=== PATIENT | female | born 1940 | race Native Hawaiian/Other Pacific Islander ===

== ENCOUNTER 2017-01-13 20:21 | Inpatient (IN) | payer SELFPAY ==
[2017-01-13 20:21] VITALS: BMI 25.0
[2017-01-13 22:00] LABS: BASO % 0.7 % (0.0-2.0); EOS # 0.1 K/uL (0.0-0.7); EOS % 1.3 % (0.0-4.0); HEMOGLOBIN 13.8 g/dL (12.0-16.0); LYMPH # 2.1 K/uL (1.0-4.3); LYMPH % 33.4 % (20.0-40.0); MEAN CELL VOLUME 90.5 fl (81.0-99.0); MEAN CORPUSCULAR HEMOGLOBIN 29.8 pg (27.0-31.0); MEAN PLATELET VOLUME 7.6 fl (7.2-11.7); MONO # 0.5 K/uL (0.0-0.8); MONO % 8.3 % (0.0-10.0); NEUT # 3.5 K/uL (1.8-7.0); NEUT % 56.3 % (50.0-75.0); RBC 4.63 Mil/uL (3.80-5.20); RED CELL DISTRIBUTION WIDTH 13.7 % (11.5-14.5); WHITE BLOOD COUNT 6.2 K/uL (4.8-10.8)
[2017-01-13 22:03] LABS: ALB/GLOB RATIO 1.3 (1.0-2.1); ALBUMIN 4.5 g/dL (3.5-5.0); ALT/SGPT 46 U/L (9-52); AST/SGOT 43 U/L (14-36); BLOOD UREA NITROGEN 14 mg/dl (7-17); CALCIUM 9.8 mg/dL (8.4-10.2); GFR AFRICAN-AMERICAN > 60; GFR NON-AFRICAN AMERICAN > 60
[2017-01-13] MEDS ORDERED: Nitroglycerin 2% 15 INCH/30 GM TUBE TOP STA (22:03)
--- NOTE | 2017-01-13 22:04 | ED PDOC ---
HPI: Chest Pain Time Seen by Provider: 01/13/17 20:50 Chief Complaint (Nursing): Chest Pain Chief Complaint (Provider): Shortness of breath History Per: Patient History/Exam Limitations: no limitations Onset/Duration Of Symptoms: Days (2) Additional Complaint(s): Patient is a 76 year old female presenting to the emergency department for shortness of breath x2 days and a headache that radiates to the top of her head and both temples. Notes that her blood pressure medications were changed recently, reporting a blood pressure of 204/104 and then a systolic pressure of 187. Denies chest pain, palpitations, focal weakness, calf pain or swelling, and recent travel. [employer] #[id number] was used to obtain history. PCP: none provided. Past Medical History Vital Signs: Last Vital Signs Temp 98.4 F 01/15/17 12:00 Pulse 57 L 01/15/17 12:00 Resp 20 01/15/17 12:00 BP 143/69 01/15/17 12:00 Pulse Ox 99 01/16/17 10:36 - Medical History PMH: HTN Denies: Chronic Kidney Disease - Family History Family History: States: Unknown Family Hx - Home Medications Home Medications: Ambulatory Orders Medication Instructions Recorded Famotidine [Pepcid] 20 mg PO DAILY #30 tab 01/15/17 Lisinopril [Zestril] 30 mg PO DAILY #30 tab 01/15/17 - Allergies Allergies/Adverse Reactions: Allergies Allergy/AdvReac Type Severity Reaction Status Date / Time No Known Allergies Allergy Verified 04/29/15 23:03 Review of Systems ROS Statement: Except As Marked, All Systems Reviewed And Found Negative Cardiovascular: Negative for: Chest Pain, Palpitations Respiratory: Positive for: Shortness of Breath (x 2 days) Musculoskeletal: Negative for: Leg Pain (calf pain or swelling) Neurological: Positive for: Headache (top of head and bilateral temples). Negative for: Weakness (focal) Physical Exam - Reviewed Nursing Documentation Reviewed: Yes Vital Signs Reviewed: Yes - Physical Exam Appears: Positive for: Well, Non-toxic, No Acute Distress Head Exam: Positive for: ATRAUMATIC, NORMAL INSPECTION, NORMOCEPHALIC Skin: Positive for: Normal Color, Warm, Dry Eye Exam: Positive for: EOMI, Normal appearance, PERRL ENT: Positive for: Normal ENT Inspection Neck: Positive for: Normal, Painless ROM, Supple Cardiovascular/Chest: Positive for: Regular Rate, Rhythm. Negative for: Murmur Respiratory: Positive for: Normal Breath Sounds. Negative for: Accessory Muscle Use, Respiratory Distress Gastrointestinal/Abdominal: Positive for: Normal Exam, Soft Back: Positive for: Normal Inspection Extremity: Positive for: Normal ROM. Negative for: Pedal Edema Neurologic/Psych: Positive for: Alert, Oriented, Other (speaking in full sentences) - Laboratory Results Result Diagrams: 01/13/17 21:45 01/13/17 21:45 - ECG Interpretation Of ECG: SR @ 81, PACs, no ST-T changes. O2 Sat by Pulse Oximetry: 99 (RA) Pulse Ox Interpretation: Normal - Radiology X-Ray: Interpreted by Oh X-Ray Interpretation: No Acute Disease - CT Scan/US CT head Other Rad Studies (CT/US): Radiology Report Reviewed (No acute intracranial hemorrhage, or suspicious mass effect.) CT chest Other Rad Studies (CT/US): Radiology Report Reviewed Medical Decision Making Medical Decision Making: Time: 21:30 Initial Impression: Dyspnea, pulmonary embolism, and pneumonia Initial Plan: -Head CT Scan -EKG -Labs -ED Urine Dipstick -Chest X-Ray -Urinalysis -Nitro-Bid 2% Ointment -Reevaluation 22:[address] Scan Findings: Brain: No acute intracranial hemorrhage. Age-appropriate periventricular white matter disease. No edema. Ventricles: Age-appropriate ventriculomegaly. Bones: No acute displaced fracture. Sinuses: Unremarkable as visualized. No acute sinusitis. Mastoid air cells: Unremarkable as visualized. No mastoid effusion. IMPRESSION: No acute intracranial hemorrhage, or suspicious mass effect. Scribe Attestation: Documented by Melany Florez, acting as a scribe for Megan Montgomery MD. Provider Scribe Attestation: All medical record entries made by the Scribe were at my direction and personally dictated by me. I have reviewed the chart and agree that the record accurately reflects my personal performance of the history, physical exam, medical decision making, and the department course for this patient. I have also personally directed, reviewed, and agree with the discharge instructions and disposition. Disposition - Clinical Impression Clinical Impression: Chest pain, Dyspnea - Patient ED Disposition Is Patient to be Admitted: Yes - Disposition Disposition Time: 22:27 Condition: STABLE - Pt Status Changed To: Hospital Disposition Of: Inpatient - Admit Certification Admit to Inpatient:: After my assessment, the patient will require hospitalization for at least two midnights. This is because of the severity of symptoms shown, intensity of services needed, and/or the medical risk in this patient being treated as an outpatient. - POA Present On Arrival: None
[2017-01-13] MEDS ORDERED: Nitroglycerin 2% Ointment Foilpak UD TOP ONE (22:05)
[2017-01-13 22:15] LABS: B-TYPE NATRIURETIC PEPTIDE 42.2 pg/ml (0-900); INR 1.1 (0.9-1.2); PROTHROMBIN TIME 11.2 Seconds (9.8-13.1)
--- NOTE | 2017-01-13 22:22 | CT ---
EXAM: CT Head Without Intravenous Contrast CLINICAL HISTORY: 76 years old, female; Pain; Headache; Headache not specified; Additional info: MARIO TECHNIQUE: Axial computed tomography images of the head/brain without intravenous contrast. All CT scans at this facility use one or more dose reduction techniques, viz.: automated exposure control; ma/kV adjustment per patient size (including targeted exams where dose is matched to indication; i.e. head); or iterative reconstruction technique. Coronal and sagittal reformatted images were created and reviewed. COMPARISON: CT - HEAD W/O CONTRAST 04/30/2015 1:20:40 AM FINDINGS: Brain: No acute intracranial hemorrhage. Age-appropriate periventricular white matter disease. No edema. Ventricles: Age-appropriate ventriculomegaly. Bones: No acute displaced fracture. Sinuses: Unremarkable as visualized. No acute sinusitis. Mastoid air cells: Unremarkable as visualized. No mastoid effusion. IMPRESSION: No acute intracranial hemorrhage, or suspicious mass effect.
[2017-01-13] MEDS ORDERED: Sodium Chloride 0.9% 50 ML IV ONE (23:08)
[2017-01-13] MEDS ORDERED: Iodixanol 320 MG/ML 100 ML BOTTLE IV ONE (23:08)
[2017-01-13 23:45] LABS: URINE BACTERIA RARE (<OCC); URINE BILIRUBIN NEGATIVE (NEGATIVE); URINE BLOOD NEGATIVE (NEGATIVE); URINE CLARITY CLEAR (Clear); URINE COLOR COLORLESS (YELLOW); URINE GLUCOSE (UA) NEG (Normal); URINE LEUKOCYTE ESTERASE TRACE Leu/uL (Negative); URINE NITRATE NEGATIVE (NEGATIVE); URINE PROTEIN NEGATIVE (NEGATIVE); URINE UROBILINOGEN 0.2-1.0 mg/dL (0.2-1.0)
--- NOTE | 2017-01-14 00:01 | CT ---
EXAM: CT Angiography Chest With Intravenous Contrast CLINICAL HISTORY: 76 years old, female; Signs and symptoms; Shortness of breath; Additional info: SOB TECHNIQUE: Axial computed tomographic angiography images of the chest with intravenous contrast using pulmonary embolism protocol. All CT scans at this facility use one or more dose reduction techniques, viz.: automated exposure control; ma/kV adjustment per patient size (including targeted exams where dose is matched to indication; i.e. head); or iterative reconstruction technique. MIP reconstructed images were created and reviewed. Coronal and sagittal reformatted images were created and reviewed. CONTRAST: 90 mL of [id number] administered intravenously. COMPARISON: None FINDINGS: Pulmonary arteries: No pulmonary embolism. Aorta: No thoracic aortic aneurysm. No dissection. Lungs: No mass. No consolidation. The lungs are clear. Pleural spaces: No significant effusion. No pneumothorax. Heart: The heart is enlarged, without significant pericardial effusion. No evidence of right heart dysfunction. Bones: No acute fracture. Lymph nodes: No pathologically enlarged lymph nodes. IMPRESSION: No pulmonary embolism. The lungs are clear. Cardiomegaly, without effusion.
--- NOTE | 2017-01-14 00:48 | CP.PCM.HP ---
History of Present Illness - History of Present Illness History of Present Illness: 76 y/o Malagasy F with PMH of HTN presents to ED for evaluation of chest pain. History obtained by patient via [employer] shirt cleaner #[id number] and by son-in-law. Patient reports approximately 1 month history of intermittent, left sided, chest discomfort which she describes as "tightness." Episodes have been brief, mild, lnot related to exertion and usually alleviated with massage application of herbal Malagasy oils. On the night of assessment, patient had similar gradual onset of "tightness" which occurred after cooking dinner. She decided to seek medical attention since this episode was more intense than her prior episodes and was not alleviated with application of oils. She had associated shortness of breath and bitemporal headache but denies fevers, chills, dizziness, diaphoresis, focal weakness, abdominal pain, nausea or vomiting. At her baseline , patient is able to walk for 30 minutes per day without exertional pain or SOB. PMD: Dr Rodriguez, [facility] Present on Admission - Present on Admission Any Indicators Present on Admission: No History of DVT/PE: No History of Uncontrolled Diabetes: No Urinary Catheter: No Decubitus Ulcer Present: No Review of Systems - Review of Systems All systems: reviewed and no additional remarkable complaints except Past Patient History - Past Medical History & Family History Past Medical History?: Yes - Past Social History Smoking Status: Never Smoked Alcohol: None Drugs: Denies Home Situation {Lives}: With Family - CARDIAC Hx Hypertension: Yes - PULMONARY Hx Respiratory Disorders: No - NEUROLOGICAL Hx Neurological Disorder: No - HEENT Hx HEENT Problems: No - RENAL Hx Chronic Kidney Disease: No - ENDOCRINE/METABOLIC Hx Endocrine Disorders: No - HEMATOLOGICAL/ONCOLOGICAL Hx Blood Disorders: No - INTEGUMENTARY Hx Dermatological Problems: No - MUSCULOSKELETAL/RHEUMATOLOGICAL Hx Musculoskeletal Disorders: No Hx Falls: No - GASTROINTESTINAL Hx Gastrointestinal Disorders: No - GENITOURINARY/GYNECOLOGICAL Hx Genitourinary Disorders: No - PSYCHIATRIC Hx Psychophysiologic Disorder: No Hx Substance Use: No - SURGICAL HISTORY Hx Surgeries: No - ANESTHESIA Hx Anesthesia: No Hx Anesthesia Reactions: No Hx Malignant Hyperthermia: No Meds Allergies/Adverse Reactions: Allergies Allergy/AdvReac Type Severity Reaction Status Date / Time No Known Allergies Allergy Verified 04/29/15 23:03 Physical Exam - Constitutional Appears: Non-toxic, No Acute Distress - Head Exam Head Exam: ATRAUMATIC, NORMAL INSPECTION, NORMOCEPHALIC - Eye Exam Eye Exam: EOMI, PERRL - ENT Exam ENT Exam: Mucous Membranes Moist - Respiratory Exam Respiratory Exam: Clear to Auscultation Bilateral, NORMAL BREATHING PATTERN. absent: Chest Wall Tenderness, Rales, Rhonchi, Wheezes, Respiratory Distress - Cardiovascular Exam Cardiovascular Exam: REGULAR RHYTHM, RRR, +S1, +S2, Systolic Murmur (Grade I) - GI/Abdominal Exam GI & Abdominal Exam: Normal Bowel Sounds, Soft. absent: Distended, Guarding, Rebound, Tenderness - Extremities Exam Extremities exam: Positive for: normal capillary refill, pedal edema (trace). Negative for: calf tenderness - Neurological Exam Neurological exam: Alert, CN II-XII Intact, Oriented x3 - Psychiatric Exam Psychiatric exam: Normal Affect, Normal Mood - Skin Skin Exam: Dry, Warm Results - Vital Signs Recent Vital Signs: Last Vital Signs Temp 98.9 F 01/13/17 20:32 Pulse 69 01/13/17 20:56 Resp 16 01/13/17 20:56 BP 158/78 H 01/13/17 20:56 Pulse Ox 99 01/13/17 23:06 - Labs Result Diagrams: 01/13/17 21:45 01/13/17 21:45 Assessment & Plan - Assessment and Plan (Free Text) Assessment: 76 y/o Malagasy F with PMH of HTN presents to ED with one month of intermittent left sided chest tightness which worsened on the day of assessment. Patient was subsequently admitted for further assessment. Plan: Chest tightness -Etiology undetermined at thist time. Will rule out ACS. -Due to associated SOB and elevated D-Dimer, a CT angio was performed, which did not detect any PE or pleural effusion. -EKG reveals sinus rhythm with premature atrial complexes. No ischemic changes present. -Will repeat EKG in AM -Admit to telemetry for continuous cardiac monitoring -Troponin x1 negative. Will follow serial troponins -ASA 325mg PO administered -Nitroglycerin topical prn -O2 via NC prn Hypertension -Possibly aggravated by chest tightness -BP in ED improved from 193/83 to 158/78 during observation -Repeat systolic BP in 140s during assessment -Taking Lisinopril 20mg PO daily and Amlodipine 2.5mg PO daily -Not taking prescribed HCT 12.5mg daily -Will monitor BP Headache -Etiology undetermined -Bitemporal headache with no associated auras or focal neurologic deficits -CT head w/o contrast performed in ED detected no intracranial abnormalities -ESR performed on 12/28/16 normal at 13 -Will give tylenol 650mg PO and assess for response DVT Prophylaxis -Lovenox 40mg SC daily
[2017-01-14] MEDS ORDERED: Pneumococcal 23-Valent Vaccine IM ONE (06:00)
--- NOTE | 2017-01-14 07:22 | CARD ---
APPROVED REPORT EKG Measurement Heart [id number] <Conclusion> Sinus rhythm with premature atrial complexes Otherwise normal ECG
[2017-01-14] MEDS: Enoxaparin 40 mg Syringe SC SCH (09:34)
--- NOTE | 2017-01-14 10:07 | CP.PCM.PN ---
Subjective - Date & Time of Evaluation Date of Evaluation: 01/14/17 Time of Evaluation: 07:30 - Subjective Subjective: No acute events overnight. 7:30 DriveK #[id number] Vijay Guzman Patient endorses she feels better today. She states she has palpitations and left sided chest discomfort intermittently for past month. Occasional headache unrelated to palpitations. Patient had an echocardiogram in 2014: EF 65%, mild MR, mod TR. Telemetry strip reviewed, ?junctional beats seen. HR 40-140s. Will consult cardiology for further recommendations. Repeat EKG pending. ACS and PE ruled out. 13:45 [employer] #[id number] Robert Patient seen and examined with Dr. Hooper. Patient endorsed dizziness on two occasions, not exertional or othrostatic in nature. The chest discomfort is still present. She experiences it such that it feels her heart is racing with the discomfort.She has good effort tolerance and walks for 30 minutes a day, twice a day without difficulty. Reports similar symptoms years ago, she was given IV glucose but never given a diagnosis. During the interview, patient experienced episode of palpitations with reported discomfort. She was visibly uncomfortable, HR was regular rate and rhythm. After interview, child monitor reviewed with Dr. Hooper, HR in 70s, NSR. Lives with family: , daughter, son in law, grandson. Objective - Vital Signs/Intake and Output Vital Signs (last 24 hours): Temp Pulse Resp BP Pulse Ox 97.6 F 60 18 163/85 H 97 01/14/17 08:02 01/14/17 09:34 01/14/17 08:02 01/14/17 09:34 01/14/17 08:02 - Medications Medications: Current Medications Acetaminophen (Tylenol 325mg Tab) 325 mg PO Q6 PRN PRN Reason: Headache Last Admin: 01/14/17 09:42 Dose: 325 mg Enoxaparin Sodium (Lovenox) 40 mg SC DAILY WINNIE PRN Reason: Protocol Last Admin: 01/14/17 09:34 Dose: 40 mg Lisinopril (Zestril) 20 mg PO DAILY WINNIE Last Admin: 01/14/17 09:34 Dose: 20 mg - Labs Labs: PT 11.2 Seconds (9.8-13.1) 01/13/17 21:45 INR 1.1 (0.9-1.2) 01/13/17 21:45 APTT 33.0 Seconds (25.6-37.1) 01/13/17 21:45 - Constitutional Appears: No Acute Distress (elderly female) - ENT Exam ENT Exam: Mucous Membranes Moist - Respiratory Exam Respiratory Exam: Clear to Ausculation Bilateral, NORMAL BREATHING PATTERN. absent: Chest Wall Tenderness, Decreased Breath Sounds, Rales, Rhonchi, Wheezes - Cardiovascular Exam Cardiovascular Exam: REGULAR RHYTHM, +S1, +S2 - GI/Abdominal Exam GI & Abdominal Exam: Soft. absent: Distended, Guarding, Tenderness - Extremities Exam Extremities Exam: absent: Pedal Edema, Tenderness - Neurological Exam Neurological Exam: Alert, Awake, CN II-XII Intact - Psychiatric Exam Psychiatric exam: Normal Affect, Normal Mood - Skin Skin Exam: Dry, Intact, Normal Color Assessment and Plan (1) Intermittent palpitations Assessment & Plan: 76 year old female with HTN presented to ED with chest discomfort and palpitations. ACS and PE ruled out. All labs and imaging reviewed. Remarkable for: D-dimer mildly elevated, Cardiomegaly on chest CT. electrical alternans noted on child monitor and is likely cause of symptoms. Repeat EKG. Cardiology consult. Continue telemetry monitoring. -echo done 01/14/17:EF >70%, Mitral regurgitation trace to mild, mild tricuspid regurgitation , pulmonary hypertension RVP of 36 mmHg -repeat ekg pending Status: Acute (2) Uncontrolled hypertension Assessment & Plan: -150-180s systolic -d/c lisinopril 20mg -start lisinopril 30 mg, monitor and adjust accordingly. Status: Chronic (3) DVT prophylaxis Assessment & Plan: Lovenox 40sc Status: Acute
--- NOTE | 2017-01-14 10:49 | RAD ---
HISTORY: Hypertension/ shortness of breath. COMPARISON: 04/29/2015 FINDINGS: LUNGS: No active pulmonary disease. PLEURA: No significant pleural effusion identified, no pneumothorax apparent. CARDIOVASCULAR: No radiographic findings to suggest acute or significant cardiovascular disease. OSSEOUS STRUCTURES: No significant abnormalities. VISUALIZED UPPER ABDOMEN: Normal. OTHER FINDINGS: None. IMPRESSION: No active disease. No significant interval change compared to the prior examination(s). No preliminary report provided by emergency department personnel.
--- NOTE | 2017-01-14 12:59 | CARD ---
APPROVED REPORT EXAM: Two-dimensional and M-mode echocardiogram with Doppler and color Doppler. Other Information Quality : GoodRhythm : NSR INDICATION Palpitations 2D DIMENSIONS IVSd0.90 (0.7-1.1cm)LVDd4.34 (3.9-5.9cm) LVOT Diameter1.58 (1.8-2.4cm)PWd0.56 (0.7-1.1cm) IVSs1.51 (0.8-1.2cm)LVDs2.71 (2.5-4.0cm) FS (%) 37.4 %PWs1.07 (0.8-1.2cm) M-Mode DIMENSIONS Left Atrium (MM)3.82 (2.5-4.0cm)IVSd0.97 (0.7-1.1cm) Aortic Root2.59 (2.2-3.7cm)LVDd4.44 (4.0-5.6cm) Aortic Cusp Exc.1.91 (1.5-2.0cm)PWd1.21 (0.7-1.1cm) IVSs1.62 cmFS (%) 45 % LVDs2.44 (2.0-3.8cm)PWs1.47 cm Mitral Valve MV E Hckkewnw23.5cm/sMV DECEL [id number] A Jmqjzjen15.4cm/s MV ERI75ikJ/A ratio0.6MVA (PHT)2.63cm2 TDI Lateral E' Peak V8.47cm/sMedial E' Peak V6.52cm/sE/Lateral E'6.4 E/Medial E'8.4 Pulmonary Valve PV Peak Amoynsnl388.0cm/s Tricuspid Valve TR Peak Waopjcjc348ns/sRAP [id number] Peak Gr.20mmHg [id number] LEFT VENTRICLE The left ventricle is normal size. There is normal left ventricular wall thickness. Left ventricle systolic function is normal. The Ejection Fraction is >70%. There is normal LV segmental wall motion. Transmitral Doppler flow pattern is Grade I-abnormal relaxation pattern. RIGHT VENTRICLE The right ventricle is normal size. There is normal right ventricular wall thickness. The right ventricular systolic function is normal. ATRIA The left atrium size is normal. The right atrium size is normal. AORTIC VALVE The aortic valve is normal in structure and function. No aortic regurgitation is present. There is no aortic valvular stenosis. MITRAL VALVE The mitral valve is normal in structure. There is no evidence of mitral valve prolapse. There is no mitral valve stenosis. Mitral regurgitation is trace to mild. TRICUSPID VALVE The tricuspid valve is normal in structure. There is mild tricuspid regurgitation. Right ventricular systolic pressure is estimated at 36 mmHg. There is mild pulmonary hypertension. PULMONIC VALVE The pulmonary valve is normal in structure and function. There is no pulmonic valvular regurgitation. GREAT VESSELS The aortic root is normal in size. The IVC is normal in size and collapses >50% with inspiration. PERICARDIAL EFFUSION The pericardium appears normal. <Conclusion> The left ventricle is normal size. There is normal left ventricular wall thickness. There is normal LV segmental wall motion. Left ventricle systolic function is normal. The Ejection Fraction is >70%. Transmitral Doppler flow pattern is Grade I-abnormal relaxation pattern.
--- NOTE | 2017-01-14 15:38 | CARD ---
APPROVED REPORT EKG Measurement Heart [id number] <Conclusion> Normal sinus rhythm
[2017-01-15] MEDS: Enoxaparin 40 mg Syringe SC SCH (08:30)
--- NOTE | 2017-01-15 11:40 | CP.PCM.CON ---
History of Present Illness - History of Present Illness History of Present Illness: 76 y/o vietnamese woman admitted with chest pain pt claims she developed a dull aching left chest pain while at rest not made better or worse with movement or exertion has had this pain before ; usually resolves with massage No assoc sob/akbar/vertigo EKG: NSR Occs APC's Troponin: neg Echo: Normal sized LV Good LV Function EF: >70% Past Patient History - Past Medical History & Family History Past Medical History?: Yes - Past Social History Smoking Status: Never Smoked - CARDIAC Hx Cardiac Disorders: Yes - PULMONARY Hx Respiratory Disorders: No - NEUROLOGICAL Hx Neurological Disorder: No - HEENT Hx HEENT Problems: No - RENAL Hx Chronic Kidney Disease: No - ENDOCRINE/METABOLIC Hx Endocrine Disorders: No - HEMATOLOGICAL/ONCOLOGICAL Hx Blood Disorders: No - INTEGUMENTARY Hx Dermatological Problems: No - MUSCULOSKELETAL/RHEUMATOLOGICAL Hx Musculoskeletal Disorders: No - GASTROINTESTINAL Hx Gastrointestinal Disorders: No - GENITOURINARY/GYNECOLOGICAL Hx Genitourinary Disorders: No - PSYCHIATRIC Hx Psychophysiologic Disorder: No - SURGICAL HISTORY Hx Surgeries: No - ANESTHESIA Hx Anesthesia: No Hx Anesthesia Reactions: No Hx Malignant Hyperthermia: No Meds Allergies/Adverse Reactions: Allergies Allergy/AdvReac Type Severity Reaction Status Date / Time No Known Allergies Allergy Verified 04/29/15 23:03 - Medications Medications: Current Medications Acetaminophen (Tylenol 325mg Tab) 325 mg PO Q6 PRN PRN Reason: Headache Last Admin: 01/14/17 09:42 Dose: 325 mg Enoxaparin Sodium (Lovenox) 40 mg SC DAILY [facility] PRN Reason: Protocol Last Admin: 01/15/17 08:30 Dose: 40 mg Famotidine (Pepcid) 20 mg PO DAILY [facility] Last Admin: 01/15/17 08:29 Dose: 20 mg Lisinopril (Zestril) 30 mg PO DAILY [facility] Last Admin: 01/15/17 08:29 Dose: 30 mg Physical Exam - Head Exam Head Exam: NORMAL INSPECTION - Eye Exam Eye Exam: Normal appearance Pupil Exam: NORMAL ACCOMODATION - ENT Exam ENT Exam: Normal Exam - Neck Exam Neck exam: Positive for: Normal Inspection - Respiratory Exam Respiratory Exam: NORMAL BREATHING PATTERN - Cardiovascular Exam Cardiovascular Exam: REGULAR RHYTHM - GI/Abdominal Exam GI & Abdominal Exam: Normal Bowel Sounds Results - Vital Signs Recent Vital Signs: Last Vital Signs Temp 98.2 F 01/15/17 08:02 Pulse 90 01/15/17 09:00 Resp 18 01/15/17 08:02 BP 148/81 01/15/17 08:29 Pulse Ox 97 01/15/17 08:02 - Labs Result Diagrams: 01/13/17 21:45 01/13/17 21:45 Assessment & Plan (1) Chest pain Assessment and Plan: This appears to be Non Cardiac Chest pain Pt may be discharged Status: Acute
[2017-01-15 12:38] VITALS: BP 143/69; PULSE 57; RESP 20; TEMP 98.4
--- NOTE | 2017-01-15 14:07 | CP.PCM.DIS ---
Provider - Provider Date of Admission: 01/15/17 03:22 Attending physician: Cat Caicedo MD Time Spent in preparation of Discharge (in minutes): 35 Diagnosis - Discharge Diagnosis (1) Intermittent palpitations Status: Acute Comment: One episode overnight. Seen by cardiology: PACs, cleared for discharge , pain is non cardiac. (2) Uncontrolled hypertension Status: Resolved Comment: BP well controlled on Lisinopril 30mg . will discontinue Lisinopril 20mg and HCTZ 12.5mg Hospital Course - Lab Results Lab Results: Most Recent Lab Values WBC 6.2 K/uL (4.8-10.8) 01/13/17 21:45 RBC 4.63 Mil/uL (3.80-5.20) 01/13/17 21:45 Hgb 13.8 g/dL (12.0-16.0) 01/13/17 21:45 Hct 41.9 % (34.0-47.0) 01/13/17 21:45 MCV 90.5 fl (81.0-99.0) 01/13/17 21:45 MCH 29.8 pg (27.0-31.0) 01/13/17 21:45 MCHC 33.0 g/dL (33.0-37.0) 01/13/17 21:45 RDW 13.7 % (11.5-14.5) 01/13/17 21:45 Plt Count 228 K/uL (130-400) 01/13/17 21:45 MPV 7.6 fl (7.2-11.7) 01/13/17 21:45 Neut % (Auto) 56.3 % (50.0-75.0) 01/13/17 21:45 Lymph % (Auto) 33.4 % (20.0-40.0) 01/13/17 21:45 [place] % (Auto) 8.3 % (0.0-10.0) 01/13/17 21:45 Eos % (Auto) 1.3 % (0.0-4.0) 01/13/17 21:45 Baso % (Auto) 0.7 % (0.0-2.0) 01/13/17 21:45 Neut # 3.5 K/uL (1.8-7.0) 01/13/17 21:45 Lymph # 2.1 K/uL (1.0-4.3) 01/13/17 21:45 [place] # 0.5 K/uL (0.0-0.8) 01/13/17 21:45 Eos # 0.1 K/uL (0.0-0.7) 01/13/17 21:45 Baso # 0.0 K/uL (0.0-0.2) 01/13/17 21:45 PT 11.2 Seconds (9.8-13.1) 01/13/17 21:45 INR 1.1 (0.9-1.2) 01/13/17 21:45 APTT 33.0 Seconds (25.6-37.1) 01/13/17 21:45 D-Dimer, Quantitative 240 ng/mlDDU (0-230) H 01/13/17 21:45 Sodium 141 mmol/l (132-148) 01/13/17 21:45 Potassium 4.4 MMOL/L (3.6-5.0) 01/13/17 21:45 Chloride 107 mmol/L (98-107) 01/13/17 21:45 Carbon Dioxide 26 mmol/L (22-30) 01/13/17 21:45 Anion Gap 12 (10-20) 01/13/17 21:45 BUN 14 mg/dl (7-17) 01/13/17 21:45 Creatinine 0.9 mg/dL (0.7-1.2) 01/13/17 21:45 Est GFR ( Amer) > 60 01/13/17 21:45 Est GFR (Non-Af Amer) > 60 01/13/17 21:45 Random Glucose 114 mg/dL (65-105) H 01/13/17 21:45 Calcium 9.8 mg/dL (8.4-10.2) 01/13/17 21:45 Total Bilirubin 0.6 mg/dl (0.2-1.3) 01/13/17 21:45 AST 43 U/L (14-36) H 01/13/17 21:45 ALT 46 U/L (9-52) 01/13/17 21:45 Alkaline Phosphatase 109 U/L (38-126) 01/13/17 21:45 Troponin I < 0.0120 ng/mL (0.00-0.120) 01/14/17 14:30 NT-Pro-B Natriuret Pep 42.2 pg/ml (0-900) 01/13/17 21:45 Total Protein 8.0 G/DL (6.3-8.2) 01/13/17 21:45 Albumin 4.5 g/dL (3.5-5.0) 01/13/17 21:45 Globulin 3.5 gm/dL (2.2-3.9) 01/13/17 21:45 Albumin/Globulin Ratio 1.3 (1.0-2.1) 01/13/17 21:45 TSH 3rd Generation 3.45 mIU/ML (0.46-4.68) 01/14/17 05:30 Urine Color Colorless (YELLOW) 01/13/17 21:31 Urine Clarity Clear (Clear) 01/13/17 21:31 Urine pH 7.0 (5.0-8.0) 01/13/17 21:31 Ur Specific [place] 1.005 (1.003-1.030) 01/13/17 21:31 Urine Protein Negative mg/dL (NEGATIVE) 01/13/17 21:31 Urine Glucose (UA) Neg mg/dL (Normal) 01/13/17 21:31 Urine Ketones Negative mg/dL (NEGATIVE) 01/13/17 21:31 Urine Blood Negative (NEGATIVE) 01/13/17 21:31 Urine Nitrate Negative (NEGATIVE) 01/13/17 21:31 Urine Bilirubin Negative (NEGATIVE) 01/13/17 21:31 Urine Urobilinogen 0.2-1.0 mg/dL (0.2-1.0) 01/13/17 21:31 Ur Leukocyte Esterase Trace Ailyn/uL (Negative) 01/13/17 21:31 Urine RBC (Auto) < 1 /hpf (0-3) 01/13/17 21:31 Urine Microscopic WBC 1 /hpf (0-5) 01/13/17 21:31 Urine Bacteria Rare (<OCC) 01/13/17 21:31 - Hospital Course Hospital Course: 76 year old elderly female presented to ED with chest discomfort, palpitations and headache for past month, admitted for rule out ACS. Pts BP elevated on admission and pt was started on Lisnopril 30mg which has controlled her BP well. She complained of some abdominal discomfort alleviated by pepcid. Cardiology cleared the patient, has PAC's. bus monitor revealed HR btw 40- 90s Labs remarkable for D-dimer:[address]: negative for ICH Chest CT: negative for PE or aortic dissection Echo: EF>70%, trace to mild MR, mild TR, pulmonary HTN: 36mmhg Discharge Medications: Pepcid 20 mg PO daily Lisinopril 30 mg PO daily Discharge Exam - Head Exam Head Exam: NORMAL INSPECTION - Eye Exam Eye Exam: EOMI, Normal appearance, PERRL - ENT Exam ENT Exam: Mucous Membranes Moist - Respiratory Exam Respiratory Exam: Clear to PA & Lateral, NORMAL BREATHING PATTERN - Cardiovascular Exam Cardiovascular Exam: +S1, +S2. absent: Bradycardia, Tachycardia Additional comments: PACs on playground monitor, murmur+ - GI/Abdominal Exam GI & Abdominal Exam: Unremarkable - Neurological Exam Neurological exam: Alert, CN II-XII Intact - Psychiatric Exam Psychiatric exam: Normal Affect, Normal Mood - Skin Skin Exam: Dry, Intact, Normal Color Discharge Plan - Discharge Medications Prescriptions: Famotidine [Pepcid] 20 mg PO DAILY #30 tab Lisinopril [Zestril] 30 mg PO DAILY #30 tab - Follow Up Plan Condition: FAIR Disposition: HOME/ ROUTINE Patient education suggested?: Yes Instructions: Chest Pain (DC), Dyspnea (GEN) Additional Instructions: Patient to follow up at [facility] in 1-2 weeks. Referrals: [facility] [place] [Outside]
[2017-01-16 10:36] VITALS: O2SAT 99
== END 2017-01-15 14:40 | disposition home or self-care (01) | DRG 143 ==
LOC: H.ER 20:21 → H.ERHOLD 23:43 → H.TEL 01-14 02:08 → OBSVTOIN 01-15 03:22
PROVIDERS: ADMIT Family Medicine Geriatric Medicine; ATTEND Family Medicine Geriatric Medicine
DX: R07.89 Other chest pain (principal); I10 Essential (primary) hypertension; R51 Headache; R00.2 Palpitations; R42 Dizziness and giddiness

== ENCOUNTER 2017-01-28 08:58 | Emergency (ER) | payer SELFPAY ==
[2017-01-28 08:58] VITALS: BMI 25.0
[2017-01-28 09:16] VITALS: TEMP 98.3
[2017-01-28 10:15] LABS: BASO % 0.9 % (0.0-2.0); EOS % 0.6 % (0.0-4.0); HEMATOCRIT 41.1 % (34.0-47.0); LYMPH # 1.7 K/uL (1.0-4.3); LYMPH % 32.6 % (20.0-40.0); MEAN CELL VOLUME 91.2 fl (81.0-99.0); MEAN CORPUSCULAR HEMOGLOBIN 29.9 pg (27.0-31.0); MEAN CORPUSCULAR HGB CONC 32.8 g/dL (33.0-37.0); MEAN PLATELET VOLUME 7.5 fl (7.2-11.7); MONO # 0.4 K/uL (0.0-0.8); MONO % 7.1 % (0.0-10.0); NEUT # 3.1 K/uL (1.8-7.0); NEUT % 58.8 % (50.0-75.0); RED CELL DISTRIBUTION WIDTH 13.6 % (11.5-14.5); WHITE BLOOD COUNT 5.2 K/uL (4.8-10.8)
--- NOTE | 2017-01-28 10:32 | ED PDOC ---
HPI: Hypertension/Hypotension Time Seen by Provider: 01/28/17 09:24 Chief Complaint (Nursing): High Blood Pressure Chief Complaint (Provider): High Blood Pressure History Per: Patient History/Exam Limitations: no limitations Onset/Duration Of Symptoms: Days (x2 months) Current Symptoms Are (Timing): Still Present Additional Complaint(s): 76 y/o female with a past medical history of hypertension (Lisinopril 30 mg) who presents to the emergency department accompanied by daughter who translated from [place]ese to [place] with a complaint of dizziness, mild headache, and chest pain x2 months. Denies shortness of breath, syncope, or fever. Of note, patient was admitted earlier this month for similiar symptoms with completed CT of the brain, chest, echocardiogram, and cardiology evaluation with no significant findings. PMD: Dr. Chirag Rodriguez MD Past Medical History Reviewed: Historical Data, Nursing Documentation, Vital Signs Vital Signs: Last Vital Signs Temp 98.3 F 01/28/17 09:14 Pulse 66 01/28/17 09:14 Resp 18 01/28/17 09:14 BP 179/77 H 01/28/17 10:01 Pulse Ox 100 01/28/17 09:14 - Medical History PMH: HTN Denies: HIV, Chronic Kidney Disease - Surgical History Surgical History: No Surg Hx - Family History Family History: States: Unknown Family Hx - Social History Current smoker - smoking cessation education provided: No Alcohol: None Drugs: Denies - Home Medications Home Medications: Ambulatory Orders Medication Instructions Recorded Famotidine [Pepcid] 20 mg PO DAILY #30 tab 01/15/17 Lisinopril [Zestril] 30 mg PO DAILY #30 tab 01/15/17 Hydrochlorothiazide [Microzide] 12.5 mg PO DAILY #14 cap 01/28/17 - Allergies Allergies/Adverse Reactions: Allergies Allergy/AdvReac Type Severity Reaction Status Date / Time No Known Allergies Allergy Verified 04/29/15 23:03 Review of Systems ROS Statement: Except As Marked, All Systems Reviewed And Found Negative Constitutional: Negative for: Fever Cardiovascular: Positive for: Chest Pain Respiratory: Negative for: Shortness of Breath Neurological: Positive for: Headache (Mild), Dizziness. Negative for: Other ( Syncope) Physical Exam - Reviewed Nursing Documentation Reviewed: Yes Vital Signs Reviewed: Yes - Physical Exam Appears: Positive for: Non-toxic, No Acute Distress Head Exam: Positive for: ATRAUMATIC, NORMAL INSPECTION, NORMOCEPHALIC Skin: Positive for: Normal Color, Warm, Dry Eye Exam: Positive for: Normal appearance, EOMI Neck: Positive for: Normal, Supple Cardiovascular/Chest: Positive for: Regular Rate, Rhythm. Negative for: Murmur Respiratory: Positive for: Normal Breath Sounds. Negative for: Accessory Muscle Use, Respiratory Distress Gastrointestinal/Abdominal: Positive for: Normal Exam, Soft. Negative for: Tenderness Back: Positive for: Normal Inspection Extremity: Positive for: Normal ROM. Negative for: Pedal Edema, Swelling Neurologic/Psych: Positive for: Alert, Oriented (x3) - Laboratory Results Result Diagrams: 01/28/17 10:04 01/28/17 10:04 - ECG ECG Rhythm: Positive for: Sinus Bradycardia (58 bpm), Nonspecific Changes (ST changes) O2 Sat by Pulse Oximetry: 100 (RA) Pulse Ox Interpretation: Normal Medical Decision Making Medical Decision Making: Time: 09:33 Initial impression: High Blood Pressure Initial plan: --EKG --CMP --Troponin --CBC w/ diff --Clonidine 0.2 mg PO --Reevaluation --Reordered Clonidine for BP control. Will obtain blood work-up. --Given recent CT brain, will avoid further radiation. Time: 12:45 --BP markedly improved and patient feels better. Symptoms resolved. --Pending Family Practice for evaluation Time: 13:10 Upon provider reevaluation patient is feeling better, is medically stable, and requires no further treatment in the ED at this time. Patient will be discharged home with Rx for microzide 12.5 mg. Counseling was provided and all questions were answered regarding diagnosis and need for follow up with PMD. There is agreement to discharge plan. Return if symptoms persist or worsen. Clinical Impression: Hypertension Scribe Attestation: Documented by Sharda Thacker, acting as a scribe for Abdoulaye Perkins MD. Provider Scribe Attestation: All medical record entries made by the Scribe were at my direction and personally dictated by me. I have reviewed the chart and agree that the record accurately reflects my personal performance of the history, physical exam, medical decision making, and the department course for this patient. I have also personally directed, reviewed, and agree with the discharge instructions and disposition. Disposition - Clinical Impression Clinical Impression: Hypertension Counseled Patient/Family Regarding: Studies Performed, Diagnosis, Need For Followup, Rx Given - Disposition Referrals: [facility] [Outside] Disposition Time: 13:10 Condition: STABLE Additional Instructions: Start HCTZ once daily, may cause increased in urination. See clinic next week for BP check. Return to ER for any new or worsening symptoms. Prescriptions: Hydrochlorothiazide [Microzide] 12.5 mg PO DAILY #14 cap Instructions: Hypertension (ED) Forms: [facility] ([place])
[2017-01-28 10:33] LABS: ALB/GLOB RATIO 1.3 (1.0-2.1); ALKALINE PHOSPHATASE 83 U/L (38-126); ALT/SGPT 38 U/L (9-52); AST/SGOT 34 U/L (14-36); BLOOD UREA NITROGEN 13 mg/dl (7-17); CALCIUM 10.2 mg/dL (8.4-10.2); CARBON DIOXIDE 26 mmol/L (22-30); CHLORIDE 107 mmol/L (98-107); GFR AFRICAN-AMERICAN > 60; GLUCOSE,RANDOM 106 mg/dL (65-105); POTASSIUM 4.6 MMOL/L (3.6-5.0); SODIUM 142 mmol/l (132-148); TOTAL PROTEIN 7.8 G/DL (6.3-8.2)
[2017-01-28 11:53] VITALS: RESP 16
[2017-01-28 13:17] VITALS: BP 141/77; PULSE 58; O2SAT 99
--- NOTE | 2017-01-28 19:55 | CARD ---
APPROVED REPORT EKG Measurement Heart [id number] <Conclusion> Sinus bradycardia with sinus arrhythmia Nonspecific ST abnormality Abnormal ECG
== END 2017-01-28 13:17 | disposition home or self-care (01) ==
LOC: H.ER 08:58
DX: I10 Essential (primary) hypertension (principal)

== ENCOUNTER 2018-01-03 11:35 | Inpatient (IN) | payer SELFPAY ==
[2018-01-03 11:35] VITALS: BMI 24.5
--- NOTE | 2018-01-03 12:26 | ED PDOC ---
HPI: Chest Pain Time Seen by Provider: 01/03/18 12:26 Chief Complaint (Nursing): Chest Pain Chief Complaint (Provider): chest pain History Per: Patient, Family (Family member at bedside is translating for patient) Additional Complaint(s): 77-year-old female presents to emergency department for evaluation of chest pain and shortness of breath that started while patient was doing a nuclear stress test. Patient was noted during stress test to have exertional chest pain with changes. Upon arrival to emergency Department patient states she feels better and EKG is normal. PMD: [facility] Past Medical History Reviewed: Historical Data, Nursing Documentation, Vital Signs Vital Signs: Last Vital Signs Temp 98.3 F 01/03/18 14:25 Pulse 60 01/03/18 14:25 Resp 16 01/03/18 14:25 BP 144/71 01/03/18 14:25 Pulse Ox 99 01/03/18 14:25 - Medical History PMH: HTN - Family History Family History: States: No Known Family Hx - Living Arrangements Living Arrangements: With Family - Social History Current smoker - smoking cessation education provided: No Alcohol: None Drugs: Denies - Home Medications Home Medications: Ambulatory Orders Medication Instructions Recorded Glucosam/Chond/Hyalu/Cf Borate 1 cap PO BID 01/03/18 [[email or web address] Tablet] Lisinopril [Zestril] 30 mg PO DAILY 01/03/18 amLODIPine [Norvasc] 5 mg PO DAILY 01/03/18 - Allergies Allergies/Adverse Reactions: Allergies Allergy/AdvReac Type Severity Reaction Status Date / Time No Known Allergies Allergy Verified 04/29/15 23:03 HARRY Risk Score for UA/NSTEMI - HARRY Risk Score Age > 64: YES 3 or more CAD Risk Factors: YES Known CAD (Stenosis greater than 50%): NO Aspirin use in past 7 days: NO Severe Angina: NO EKG ST changes greater than 0.5mm: YES Positive Cardiac Marker: NO HARRY Score: 3 Risk %: 13% Curb-65 Severity Score - CURB-65 Severity Score Confusion: No Bun >19mg/dl (>7mmol/L): No Respiratory Rate greater than/equal to 30: No Systolic BP <90 or Diastolic BP less than/equal 60mmHg: No Age >64: No Curb-65 Score: 0 Percentage 30-day mortality: 0.6% Wells Criteria for PE - Wells Criteria for Pulmonary Embolism Clinical Signs and Symptoms of DVT: No P.E is #1 Diagnosis, or Equally Likely: No Heart Rate >100: No Immobilization at least 3 days;Surgery previous 4 weeks: No Previous, objectively diagnosed PE or DVT: No Hemoptysis: No Malignancy w/treatment within 6 months, or palliative: No Total Score: 0 Review of Systems ROS Statement: Except As Marked, All Systems Reviewed And Found Negative Constitutional: Negative for: Fever Cardiovascular: Positive for: Chest Pain Respiratory: Negative for: Cough, Shortness of Breath Gastrointestinal: Negative for: Nausea Neurological: Negative for: Headache, Dizziness Physical Exam - Reviewed Nursing Documentation Reviewed: Yes Vital Signs Reviewed: Yes - Physical Exam Appears: Positive for: Well, Non-toxic, No Acute Distress Skin: Positive for: Normal Color. Negative for: Rash Eye Exam: Positive for: Normal appearance Neck: Positive for: Normal Cardiovascular/Chest: Positive for: Regular Rate, Rhythm Respiratory: Positive for: Normal Breath Sounds. Negative for: Wheezing, Respiratory Distress Extremity: Positive for: Normal ROM Neurologic/Psych: Positive for: Alert, Oriented - Laboratory Results Result Diagrams: 01/03/18 13:39 01/03/18 13:39 - ECG Interpretation Of ECG: NSR 76 bpm, no acute finding, reviewed by PA and ED attending O2 Sat by Pulse Oximetry: 99 Pulse Ox Interpretation: Normal - Other Rad CXR X-Ray: Interpreted by Me, Viewed By Me X-Ray Interpretation: no acute finding Medical Decision Making Medical Decision Makin-year-old female with chest pain. Plan: EKG CXR CBC CMP Troponin IVF PT/PTT PMD is [facility], case was d/w Dr. Gambino, who will admit patient. Patient is aware of and agrees with admission. Disposition - Clinical Impression Clinical Impression: Chest pain on exertion - Patient ED Disposition Is Patient to be Admitted: Yes - Disposition Disposition Time: 13:44 Condition: FAIR - Pt Status Changed To: Hospital Disposition Of: Observation - POA Present On Arrival: None Results - Lab Results Lab Results: 01/03/18 01/03/18 01/03/18 13:39 13:39 13:39 WBC 4.7 L RBC 4.30 Hgb 13.4 Hct 39.0 MCV 90.6 MCH 31.1 H MCHC 34.3 RDW 13.5 Plt Count 236 MPV 7.8 Neut % (Auto) 44.0 L Lymph % (Auto) 44.9 H [place] % (Auto) 8.9 Eos % (Auto) 1.1 Baso % (Auto) 1.1 Neut # (Auto) 2.1 Lymph # (Auto) 2.1 [place] # (Auto) 0.4 Eos # (Auto) 0.1 Baso # (Auto) 0.1 PT 11.5 INR 1.0 APTT 34.5 Sodium 143 Potassium 4.4 Chloride 107 Carbon Dioxide 23 Anion Gap 17 BUN 14 Creatinine 0.7 Est GFR ( Amer) > 60 Est GFR (Non-Af Amer) > 60 Random Glucose 98 Calcium 9.6 Phosphorus 2.9 Magnesium 1.9 Total Bilirubin 1.2 AST 47 H ALT 46 Alkaline Phosphatase 83 Troponin I < 0.0120 Total Protein 7.6 Albumin 4.2 Globulin 3.4 Albumin/Globulin Ratio 1.2
[2018-01-03] MEDS ORDERED: Sodium Chloride 0.9% 1,000 ML IV STA (13:28)
[2018-01-03 13:59] LABS: BASO # 0.1 K/uL (0.0-0.2); BASO % 1.1 % (0.0-2.0); EOS # 0.1 K/uL (0.0-0.7); EOS % 1.1 % (0.0-4.0); HEMOGLOBIN 13.4 g/dL (12.0-16.0); LYMPH # 2.1 K/uL (1.0-4.3); LYMPH % 44.9 % (20.0-40.0); MEAN CELL VOLUME 90.6 fl (81.0-99.0); MEAN CORPUSCULAR HEMOGLOBIN 31.1 pg (27.0-31.0); MEAN CORPUSCULAR HGB CONC 34.3 g/dL (33.0-37.0); MEAN PLATELET VOLUME 7.8 fl (7.2-11.7); MONO # 0.4 K/uL (0.0-0.8); MONO % 8.9 % (0.0-10.0); NEUT # 2.1 K/uL (1.8-7.0); NRBC % 0.3 % (0.0-0.0); RBC 4.3 Mil/uL (3.80-5.20); RED CELL DISTRIBUTION WIDTH 13.5 % (11.5-14.5); WHITE BLOOD COUNT 4.7 K/uL (4.8-10.8)
[2018-01-03 14:05] LABS: PROTHROMBIN TIME 11.5 Seconds (9.8-13.1)
[2018-01-03 14:08] LABS: PARTIAL THROMBOPLASTIN TIME 34.5 Seconds (25.6-37.1)
[2018-01-03 14:12] LABS: ALB/GLOB RATIO 1.2 (1.0-2.1); ALBUMIN 4.2 g/dL (3.5-5.0); ALT/SGPT 46 U/L (9-52); AST/SGOT 47 U/L (14-36); BLOOD UREA NITROGEN 14 mg/dl (7-17); CALCIUM 9.6 mg/dL (8.4-10.2); GFR AFRICAN-AMERICAN > 60; GFR NON-AFRICAN AMERICAN > 60
--- NOTE | 2018-01-03 14:42 | RAD ---
Date of service: 01/03/2018 HISTORY: clearance COMPARISON: 01/13/2017. FINDINGS: LUNGS: The lungs are well inflated and clear. PLEURA: No significant pleural effusion identified, no pneumothorax apparent. CARDIOVASCULAR: The heart is normal in size. Atherosclerotic aortic arch calcifications are present. OSSEOUS STRUCTURES: No significant abnormalities. VISUALIZED UPPER ABDOMEN: Normal. OTHER FINDINGS: None. IMPRESSION: No active pulmonary disease.
--- NOTE | 2018-01-03 16:32 | CP.PCM.HP ---
History of Present Illness - History of Present Illness History of Present Illness: 77 Y/O female with PMHx of HTN, knee pain presents to ED for chest pain during nuclear stress test. Pharmacologic stress test was done using regadenoson IV. Patient started getting chest discomfort so test was terminated. During stress test: Max HR 61, Max BP 182/86, Ventricular premature beats and ST changes in II, III and AVF and V4 to V6. Patient was given SL NTG and transferred to ER for further evaluation. Chest discomfort is 2/10, dull, left sided and substernal area without any radiation. Patient also reports associated nausea, shaking, and mild SOB during stress test which has resolved in ED. Patient notes of miltiple similar episodes during last 2 years. Patient also reports intermittent blurry vision which lasts for few hours and resolves on its own. Denies any headache, dizziness, SOB, palpitation, tingling, numbness , weakness, vomiting, diarrhea, abdominal pain, back pain, urinary symptoms. PCP - Dr. Art Murillo at [facility] ED Course - Improvement in CP and SOB - VS Stable - CBC, CMP, lipid panel WNL - Troponins x 1 WNL - EKG: Sinus Rhythm, No ST changes - Restart home medications: Amlodipine and Lisinopril - Cardiology consult on board - Patient to be transferred to Telemetry - PMH: HTN - PSH: None - Medications: Lisinopril 30 mg, Amlodipine 5 mg - Allergies: NKDA - Hospitalization: 1 year ago for HTN urgency - Social Hx - NO ETOH/Tobacco/Drugs Present on Admission - Present on Admission Any Indicators Present on Admission: No History of DVT/PE: No History of Uncontrolled Diabetes: No Urinary Catheter: No Decubitus Ulcer Present: No Review of Systems - Review of Systems All systems: reviewed and no additional remarkable complaints except - Constitutional Constitutional: absent: Anorexia, Chills, Fatigue, Fever, Headache, Weakness - EENT Eyes: Blurred Vision. absent: Diplopia, Discharge, Dry Eye, Exophthalmos, Pain , Photophobia Ears: absent: Ear Pain Nose/Mouth/Throat: absent: Sinus Pain, Sinus Pressure - Cardiovascular Cardiovascular: Chest Pain, Dyspnea, Irregular Heart Rhythm. absent: Lightheadedness, Palpitations, Pedal Edema, Radiating Pain - Respiratory Respiratory: Dyspnea. absent: Cough, Hemoptysis, Wheezing, Chest Congestion - Gastrointestinal Gastrointestinal: Nausea. absent: Abdominal Pain, Belching, Bloating, Constipation, Diarrhea, Dyspepsia, Dysphagia, Vomiting - Genitourinary Genitourinary: absent: Dysuria - Reproductive: Female Reproductive:Female: Post Menopausal - Menstruation Menstruation: Post Menopausal - Musculoskeletal Musculoskeletal: absent: Back Pain, Numbness - Integumentary Integumentary: absent: Photosensitivity, Swelling - Neurological Neurological: absent: Abnormal Hearing, Convulsions, Disequilibrium, Dizziness, Numbness, Focal Weakness, Memory Loss, Sensory Deficit, Weakness - Psychiatric Psychiatric: absent: Anxiety, Memory Loss - Endocrine Endocrine: absent: Fatigue, Flushing Past Patient History - Infectious Disease Hx of Infectious Diseases: None - Tetanus Immunizations Tetanus Immunization: Unknown - Past Medical History & Family History Past Medical History?: Yes - Past Social History Smoking Status: Never Smoked Alcohol: None Drugs: Denies - CARDIAC Hx Hypertension: Yes - PULMONARY Hx Respiratory Disorders: No - NEUROLOGICAL Hx Neurological Disorder: No - HEENT Hx HEENT Problems: No - RENAL Hx Chronic Kidney Disease: No - ENDOCRINE/METABOLIC Hx Endocrine Disorders: No - HEMATOLOGICAL/ONCOLOGICAL Hx Human Immunodeficiency Virus (HIV): No - INTEGUMENTARY Hx Dermatological Problems: No - MUSCULOSKELETAL/RHEUMATOLOGICAL Hx Musculoskeletal Disorders: No - GASTROINTESTINAL Hx Gastrointestinal Disorders: No - GENITOURINARY/GYNECOLOGICAL Hx Genitourinary Disorders: No - PSYCHIATRIC Hx Psychophysiologic Disorder: No Hx Substance Use: No - SURGICAL HISTORY Hx Surgeries: No - ANESTHESIA Hx Anesthesia: No Hx Anesthesia Reactions: No Hx Malignant Hyperthermia: No Meds Allergies/Adverse Reactions: Allergies Allergy/AdvReac Type Severity Reaction Status Date / Time No Known Allergies Allergy Verified 04/29/15 23:03 Physical Exam - Constitutional Appears: Well, Non-toxic, No Acute Distress - Head Exam Head Exam: ATRAUMATIC, NORMAL INSPECTION, NORMOCEPHALIC - Eye Exam Eye Exam: EOMI, Normal appearance, PERRL Pupil Exam: NORMAL ACCOMODATION, PERRL - ENT Exam ENT Exam: Mucous Membranes Moist - Respiratory Exam Respiratory Exam: Clear to Auscultation Bilateral, NORMAL BREATHING PATTERN. absent: Chest Wall Tenderness, Decreased Breath Sounds, Rales, Rhonchi, Wheezes , Respiratory Distress - Cardiovascular Exam Cardiovascular Exam: REGULAR RHYTHM, +S1, +S2. absent: Tachycardia, Irregular Rhythm, Systolic Murmur - GI/Abdominal Exam GI & Abdominal Exam: Normal Bowel Sounds, Soft. absent: Distended, Guarding, Hernia - Extremities Exam Extremities exam: Negative for: calf tenderness, joint swelling, pedal edema, tenderness - Back Exam Back exam: absent: CVA tenderness (L), CVA tenderness (R) - Neurological Exam Neurological exam: Alert, Oriented x3 - Psychiatric Exam Psychiatric exam: Normal Affect, Normal Mood - Skin Skin Exam: Dry, Intact, Normal Color Results - Vital Signs Recent Vital Signs: Last Vital Signs Temp 98.3 F 01/03/18 14:59 Pulse 60 01/03/18 14:59 Resp 16 01/03/18 14:59 BP 144/71 01/03/18 14:59 Pulse Ox 99 01/03/18 15:10 - Labs Result Diagrams: 01/03/18 13:39 01/03/18 13:39 Labs: Laboratory Results - last 24 hr 01/03/18 01/03/18 01/03/18 13:39 13:39 13:39 WBC 4.7 L RBC 4.30 Hgb 13.4 Hct 39.0 MCV 90.6 MCH 31.1 H MCHC 34.3 RDW 13.5 Plt Count 236 MPV 7.8 Neut % (Auto) 44.0 L Lymph % (Auto) 44.9 H [place] % (Auto) 8.9 Eos % (Auto) 1.1 Baso % (Auto) 1.1 Neut # (Auto) 2.1 Lymph # (Auto) 2.1 [place] # (Auto) 0.4 Eos # (Auto) 0.1 Baso # (Auto) 0.1 PT 11.5 INR 1.0 APTT 34.5 Sodium 143 Potassium 4.4 Chloride 107 Carbon Dioxide 23 Anion Gap 17 BUN 14 Creatinine 0.7 Est GFR ( Amer) > 60 Est GFR (Non-Af Amer) > 60 Random Glucose 98 Calcium 9.6 Phosphorus 2.9 Magnesium 1.9 Total Bilirubin 1.2 AST 47 H ALT 46 Alkaline Phosphatase 83 Troponin I < 0.0120 Total Protein 7.6 Albumin 4.2 Globulin 3.4 Albumin/Globulin Ratio 1.2 - EKG Data EKG Interpreted by: Other EKG shows normal: Sinus rhythm Rate: Normal Assessment & Plan - Assessment and Plan (Free Text) Assessment: 77 Y/O female with PMHx of HTN, knee pain presents to ED for chest pain during nuclear stress test. Plan: Chest pain - Chest pain during nuclear stress test - Improved in ED - CBC, CMP, Lipid panel unremarkable - Troponins x 1 WNL - EKG: Sinus rhythm - C/W amlodipine 5 mg PO QD - C/W Lisinporil 30 mg PO QD - [employer] consult on board: Will follow recommendations - F/U Troponins x 2 - F/U CBC, CMP tomorrow AM - Pt to be transferred to [facility], Monitor vitals. Hypertension - Uncontrolled - C/W amlodipine 5 mg PO QD - C/W Lisinporil 30 mg PO QD - Will monitor vitals Q4hr DVT Prophylaxis - Lovenox 40 mg SC
[2018-01-04 05:38] LABS: BASO % 0.7 % (0.0-2.0); EOS # 0.1 K/uL (0.0-0.7); EOS % 2.2 % (0.0-4.0); HEMOGLOBIN 13.4 g/dL (12.0-16.0); LYMPH # 2.3 K/uL (1.0-4.3); LYMPH % 41.6 % (20.0-40.0); MEAN CELL VOLUME 92.1 fl (81.0-99.0); MEAN CORPUSCULAR HEMOGLOBIN 30.9 pg (27.0-31.0); MEAN CORPUSCULAR HGB CONC 33.6 g/dL (33.0-37.0); MEAN PLATELET VOLUME 7.8 fl (7.2-11.7); MONO # 0.6 K/uL (0.0-0.8); MONO % 10.6 % (0.0-10.0); NEUT # 2.5 K/uL (1.8-7.0); NEUT % 44.9 % (50.0-75.0); NRBC % 0.1 % (0.0-0.0); RBC 4.33 Mil/uL (3.80-5.20); RED CELL DISTRIBUTION WIDTH 13.3 % (11.5-14.5); WHITE BLOOD COUNT 5.6 K/uL (4.8-10.8)
[2018-01-04 06:50] LABS: ALB/GLOB RATIO 1.2 (1.0-2.1); ALBUMIN 3.9 g/dL (3.5-5.0); ALT/SGPT 46 U/L (9-52); AST/SGOT 43 U/L (14-36); BLOOD UREA NITROGEN 11 mg/dl (7-17); CALCIUM 9.7 mg/dL (8.4-10.2); GFR AFRICAN-AMERICAN > 60; GFR NON-AFRICAN AMERICAN > 60
[2018-01-04] MEDS ORDERED: Enoxaparin 40 mg Syringe SC SCH (09:00)
--- NOTE | 2018-01-04 11:18 | CP.PCM.CON ---
History of Present Illness - History of Present Illness History of Present Illness: The history on this patient was obtained by talking to her daughter since the patient cannot speak [place]. The patient has a long history of hypertension and has complained of chest discomfort quite unconnected to physical activity. The patient's daughter reports that she is able to walk couple of blocks and often does without ever experiencing any chest pain. She has never smoked and has no history of diabetes mellitus. She has taken antihypertensives medications. There is no family history of heart disease. The patient underwent a nuclear stress test employing Lexiscan yesterday and complained of chest discomfort, during the test. It is not specified if the discomfort was following intravenous infusion of Lexiscan. The daughter reports that the discomfort was a knot retrosternal but mostly on the left side. It was not accompanied by perspiration drop in blood pressure nausea or vomiting. The patient was hospitalized for observation and has remained chest pain-free during the period of observation. Physical examination shows a pleasant elderly lady who is alert awake coherent and is able to get in and out of bed unassisted and use the bathroom unassisted. Telemetry shows steady sinus rhythm at 60-80 bpm with a rare isolated premature ventricular beats. Her blood pressure was 144/70 mmHg. Her jugular venous pressure was not elevated there was no edema over his lower extremity. Her pedal pulses were well felt. There was no carotid bruit. The extremities were warm and nailbeds were pink. There was no central or peripheral cyanosis. There was no clubbing. The apex was in the face basal first and second heart sounds are normal there was no murmur or gallop or rales. Her abdomen was soft and liver and spleen are not palpable. Her electro- cardial gram showed sinus rhythm with a normal EKG pattern. Review off her myocardial perfusion images shows normal regional sestamibi uptake. Her electrocardiograms [place] following intravenous infusion of Lexiscan does not show any ischemic pattern. Her lab tests show normal troponin levels. The rest of her labs were noted. Impression: Atypical chest pain with no evidence of acute coronary syndrome in a patient with hypertension. No evidence of coronary artery disease has been detected and the patient may be allowed to return home to continue her management as an outpatient. Past Patient History - Infectious Disease Hx of Infectious Diseases: None - Tetanus Immunizations Tetanus Immunization: Unknown - Past Medical History & Family History Past Medical History?: Yes - Past Social History Smoking Status: Never Smoked - CARDIAC Hx Hypertension: Yes - PULMONARY Hx Respiratory Disorders: No - NEUROLOGICAL Hx Neurological Disorder: No - HEENT Hx HEENT Problems: No - RENAL Hx Chronic Kidney Disease: No - ENDOCRINE/METABOLIC Hx Endocrine Disorders: No - HEMATOLOGICAL/ONCOLOGICAL Hx Human Immunodeficiency Virus (HIV): No - INTEGUMENTARY Hx Dermatological Problems: No - MUSCULOSKELETAL/RHEUMATOLOGICAL Hx Arthritis: Yes Hx Falls: Yes (1) - GASTROINTESTINAL Hx Gastrointestinal Disorders: No - GENITOURINARY/GYNECOLOGICAL Hx Genitourinary Disorders: No - PSYCHIATRIC Hx Psychophysiologic Disorder: No Hx Substance Use: No - SURGICAL HISTORY Hx Surgeries: No - ANESTHESIA Hx Anesthesia: No Hx Anesthesia Reactions: No Hx Malignant Hyperthermia: No Meds Allergies/Adverse Reactions: Allergies Allergy/AdvReac Type Severity Reaction Status Date / Time No Known Allergies Allergy Verified 04/29/15 23:03 - Medications Medications: Current Medications Amlodipine Besylate (Norvasc) 5 mg PO DAILY [facility] Last Admin: 01/04/18 09:56 Dose: 5 mg Enoxaparin Sodium (Lovenox) 40 mg SC DAILY [facility] PRN Reason: Protocol Last Admin: 01/04/18 09:58 Dose: Not Given Lisinopril (Zestril) 30 mg PO DAILY [facility] Last Admin: 01/04/18 09:57 Dose: 30 mg Results - Vital Signs Recent Vital Signs: Last Vital Signs Temp 98 F 01/04/18 08:00 Pulse 63 01/04/18 09:57 Resp 20 01/04/18 08:00 BP 152/78 H 01/04/18 09:57 Pulse Ox 98 01/04/18 08:00 - Labs Result Diagrams: 01/04/18 04:20 01/04/18 04:20 Labs: Laboratory Results - last 24 hr 01/03/18 01/03/18 01/03/18 13:39 13:39 13:39 WBC 4.7 L RBC 4.30 Hgb 13.4 Hct 39.0 MCV 90.6 MCH 31.1 H MCHC 34.3 RDW 13.5 Plt Count 236 MPV 7.8 Neut % (Auto) 44.0 L Lymph % (Auto) 44.9 H [place] % (Auto) 8.9 Eos % (Auto) 1.1 Baso % (Auto) 1.1 Neut # (Auto) 2.1 Lymph # (Auto) 2.1 [place] # (Auto) 0.4 Eos # (Auto) 0.1 Baso # (Auto) 0.1 PT 11.5 INR 1.0 APTT 34.5 Sodium 143 Potassium 4.4 Chloride 107 Carbon Dioxide 23 Anion Gap 17 BUN 14 Creatinine 0.7 Est GFR ( Amer) > 60 Est GFR (Non-Af Amer) > 60 Random Glucose 98 Calcium 9.6 Phosphorus 2.9 Magnesium 1.9 Total Bilirubin 1.2 AST 47 H ALT 46 Alkaline Phosphatase 83 Troponin I < 0.0120 Total Protein 7.6 Albumin 4.2 Globulin 3.4 Albumin/Globulin Ratio 1.2 01/03/18 01/04/18 01/04/18 21:30 04:20 04:20 WBC 5.6 RBC 4.33 Hgb 13.4 Hct 39.9 MCV 92.1 MCH 30.9 MCHC 33.6 RDW 13.3 Plt Count 221 MPV 7.8 Neut % (Auto) 44.9 L Lymph % (Auto) 41.6 H [place] % (Auto) 10.6 H Eos % (Auto) 2.2 Baso % (Auto) 0.7 Neut # (Auto) 2.5 Lymph # (Auto) 2.3 [place] # (Auto) 0.6 Eos # (Auto) 0.1 Baso # (Auto) 0.0 PT INR APTT Sodium 142 Potassium 4.1 Chloride 108 H Carbon Dioxide 25 Anion Gap 13 BUN 11 Creatinine 0.8 Est GFR ( Amer) > 60 Est GFR (Non-Af Amer) > 60 Random Glucose 95 Calcium 9.7 Phosphorus Magnesium Total Bilirubin 1.4 H AST 43 H ALT 46 Alkaline Phosphatase 76 Troponin I < 0.0120 Total Protein 7.1 Albumin 3.9 Globulin 3.2 Albumin/Globulin Ratio 1.2 01/04/18 06:30 WBC RBC Hgb Hct MCV MCH MCHC RDW Plt Count MPV Neut % (Auto) Lymph % (Auto) [place] % (Auto) Eos % (Auto) Baso % (Auto) Neut # (Auto) Lymph # (Auto) [place] # (Auto) Eos # (Auto) Baso # (Auto) PT INR APTT Sodium Potassium Chloride Carbon Dioxide Anion Gap BUN Creatinine Est GFR ( Amer) Est GFR (Non-Af Amer) Random Glucose Calcium Phosphorus Magnesium Total Bilirubin AST ALT Alkaline Phosphatase Troponin I < 0.0120 Total Protein Albumin Globulin Albumin/Globulin Ratio
--- NOTE | 2018-01-04 11:30 | CP.PCM.DIS ---
Provider - Provider Date of Admission: 01/03/18 13:48 Attending physician: Cat Caicedo MD Primary care physician: [facility] Consults: Cardio, Dr. Bass Time Spent in preparation of Discharge (in minutes): 40 Diagnosis - Discharge Diagnosis (1) Chest pain on exertion Status: Resolved (2) Hypertension Status: Chronic Hospital Course - Lab Results Lab Results: Most Recent Lab Values WBC 5.6 K/uL (4.8-10.8) 01/04/18 04:20 RBC 4.33 Mil/uL (3.80-5.20) 01/04/18 04:20 Hgb 13.4 g/dL (12.0-16.0) 01/04/18 04:20 Hct 39.9 % (34.0-47.0) 01/04/18 04:20 MCV 92.1 fl (81.0-99.0) 01/04/18 04:20 MCH 30.9 pg (27.0-31.0) 01/04/18 04:20 MCHC 33.6 g/dL (33.0-37.0) 01/04/18 04:20 RDW 13.3 % (11.5-14.5) 01/04/18 04:20 Plt Count 221 K/uL (130-400) 01/04/18 04:20 MPV 7.8 fl (7.2-11.7) 01/04/18 04:20 Neut % (Auto) 44.9 % (50.0-75.0) L 01/04/18 04:20 Lymph % (Auto) 41.6 % (20.0-40.0) H 01/04/18 04:20 [place] % (Auto) 10.6 % (0.0-10.0) H 01/04/18 04:20 Eos % (Auto) 2.2 % (0.0-4.0) 01/04/18 04:20 Baso % (Auto) 0.7 % (0.0-2.0) 01/04/18 04:20 Neut # (Auto) 2.5 K/uL (1.8-7.0) 01/04/18 04:20 Lymph # (Auto) 2.3 K/uL (1.0-4.3) 01/04/18 04:20 [place] # (Auto) 0.6 K/uL (0.0-0.8) 01/04/18 04:20 Eos # (Auto) 0.1 K/uL (0.0-0.7) 01/04/18 04:20 Baso # (Auto) 0.0 K/uL (0.0-0.2) 01/04/18 04:20 PT 11.5 Seconds (9.8-13.1) 01/03/18 13:39 INR 1.0 01/03/18 13:39 APTT 34.5 Seconds (25.6-37.1) 01/03/18 13:39 Sodium 142 mmol/l (132-148) 01/04/18 04:20 Potassium 4.1 MMOL/L (3.6-5.0) 01/04/18 04:20 Chloride 108 mmol/L (98-107) H 01/04/18 04:20 Carbon Dioxide 25 mmol/L (22-30) 01/04/18 04:20 Anion Gap 13 (10-20) 01/04/18 04:20 BUN 11 mg/dl (7-17) 01/04/18 04:20 Creatinine 0.8 mg/dl (0.7-1.2) 01/04/18 04:20 Est GFR ( Amer) > 60 01/04/18 04:20 Est GFR (Non-Af Amer) > 60 01/04/18 04:20 Random Glucose 95 mg/dL (65-105) 01/04/18 04:20 Calcium 9.7 mg/dL (8.4-10.2) 01/04/18 04:20 Phosphorus 2.9 mg/dl (2.5-4.5) 01/03/18 13:39 Magnesium 1.9 MG/DL (1.6-2.3) 01/03/18 13:39 Total Bilirubin 1.4 mg/dl (0.2-1.3) H 01/04/18 04:20 AST 43 U/L (14-36) H 01/04/18 04:20 ALT 46 U/L (9-52) 01/04/18 04:20 Alkaline Phosphatase 76 U/L (38-126) 01/04/18 04:20 Troponin I < 0.0120 ng/mL (0.00-0.120) 01/04/18 06:30 Total Protein 7.1 G/DL (6.3-8.2) 01/04/18 04:20 Albumin 3.9 g/dL (3.5-5.0) 01/04/18 04:20 Globulin 3.2 gm/dL (2.2-3.9) 01/04/18 04:20 Albumin/Globulin Ratio 1.2 (1.0-2.1) 01/04/18 04:20 - Hospital Course Hospital Course: 77 y/o F admitted for evaluation of chest pain while having Pharmacologic stress test. After admission, patient was asymptomatic, Troponinx 2 wnl, EKG: NSR, CXR: no acute changes. Cardio, Dr. Bass was consulted: No ACS, atypical chest pain, No EKG ischemic changes noted at stress test. Patient was discharged home with instructions: C/w home medications, F/u PMD and ER precautions discussed with patient. Patient Speaks Mandarin frisian language, [employer]# [id number] Home meds: Norvasc 5mg daily, Lisinopril 30mg daily Discharge Exam - Head Exam Head Exam: ATRAUMATIC, NORMAL INSPECTION, NORMOCEPHALIC - Eye Exam Eye Exam: EOMI, Normal appearance Pupil Exam: NORMAL ACCOMODATION - ENT Exam ENT Exam: Mucous Membranes Moist - Respiratory Exam Respiratory Exam: Clear to PA & Lateral, NORMAL BREATHING PATTERN. absent: Decreased Breath Sounds, Wheezes - Cardiovascular Exam Cardiovascular Exam: REGULAR RHYTHM, +S1, +S2 - GI/Abdominal Exam GI & Abdominal Exam: Normal Bowel Sounds, Soft. absent: Tenderness - Extremities Exam Extremities exam: normal capillary refill, normal inspection, pedal pulses present - Back Exam Back exam: absent: CVA tenderness (L), CVA tenderness (R) - Neurological Exam Neurological exam: Alert, CN II-XII Intact, Oriented x3, Reflexes Normal - Psychiatric Exam Psychiatric exam: Normal Affect, Normal Mood - Skin Skin Exam: Dry, Intact, Normal Color, Warm Discharge Plan - Follow Up Plan Condition: FAIR Disposition: HOME/ ROUTINE Instructions: High Blood Pressure (DC), Chest Pain (DC) Additional Instructions: F/u with Dr. Murillo 02/03/18 on 9:00 am Referrals: [facility] [Outside]
[2018-01-04 13:14] VITALS: BP 131/69; PULSE 60; RESP 18; TEMP 98.2; O2SAT 97
--- NOTE | 2018-01-04 17:13 | CARD ---
APPROVED REPORT Date of service: 01/04/2018 EKG Measurement Heart [id number] <Conclusion> Normal sinus rhythm Normal ECG
== END 2018-01-04 13:58 | disposition home or self-care (01) | DRG 143 ==
LOC: H.ER 11:35 → H.ERHOLD 13:48 → H.TEL 16:28
PROVIDERS: ADMIT Family Medicine Geriatric Medicine; ATTEND Family Medicine Geriatric Medicine
DX: R07.89 Other chest pain (principal); I10 Essential (primary) hypertension; I49.3 Ventricular premature depolarization